=== PATIENT | female | born 1935 | race Caucasian/White ===

== ENCOUNTER 2020-06-22 14:02 | Observation (INO) | payer MEDICARE ==
--- NOTE | 2020-06-22 14:04 | ERPHSYRPT ---
- History of Present Illness Time Seen by Provider: 06/22/20 14:04 Source: patient, EMS Exam Limitations: no limitations Physician History: This is an 84-year-old white female who is on anticoagulation therapy and for some unknown reason she fell forward hitting her face. She states that she did not lose consciousness. She also has pain in the left hand as well. Patient arrives via EMS without a c-collar in place. She is alert and oriented. She denies chest pain. She denies shortness of breath. She denies abdominal pain. Patient's doctor is Dr. Shetty out of [facility]. They are CAT scan there is not functioning at the time and therefore was transferred to us for evaluation and management. Occurred: just prior to arrival Reason for Fall: unknown Injuries/Pain Location: face, upper extremity (Left hand), mouth Loss of Consciousness: unsure Quality: aching Severity of Pain-Max: moderate Severity of Pain-Current: mild Modifying Factors: Improves With: movement Associated Symptoms (Fall): extremity injury (Hand), No abdominal pain, No confusion, No chest pain, No headache, No nausea, No neck pain, No shortness of breath, No slurred speech Allergies/Adverse Reactions: No Known Drug Allergies Allergy (Unverified 06/22/20 14:07) Home Medications: Aspirin 06/22/20 [History] Beta-Carotene(A) W-C & E/Min [Ocuvite Tablet] 06/22/20 [History] Carvedilol 06/22/20 [History] Levothyroxine Sodium [Levothyroxine] 06/22/20 [History] Rivaroxaban [Xarelto] 06/22/20 [History] Simvastatin 06/22/20 [History] Torsemide 20 mg [Demadex 20 mg] 06/22/20 [History] Tramadol HCl/Acetaminophen [Tramadol-Acetaminophn 37.5-325] 06/22/20 [History] Travel Risk - International Travel Have you traveled outside of the country in past 3 weeks: No - Coronavirus Screening Are you exhibiting any of the following symptoms?: No Close contact with a COVID-19 positive Pt in past 14-21 Days: No - Review of Systems Constitutional: No Symptoms Eyes: No Symptoms Ears, Nose, & Throat: No Symptoms Respiratory: No Symptoms Cardiac: No Symptoms Abdominal/Gastrointestinal: No Symptoms Genitourinary Symptoms: No Symptoms Musculoskeletal: Fall, Injury (Left hand) Skin: Other (Left hand skin lacerations x2. Laceration nasal bridge) Neurological: No Symptoms Psychological: No Symptoms Endocrine: No Symptoms Hematologic/Lymphatic: Easy Bruising (Patient on anticoagulation therapy) Immunological/Allergic: No Symptoms All Other Systems: Reviewed and Negative - Past Medical History Pertinent Past Medical History: Yes - Past Surgical History Past Surgical History: Yes - Nursing Vital Signs Nursing Vital Signs: Initial Vital Signs Temperature 98.0 F 06/22/20 14:13 Pulse Rate 89 06/22/20 14:13 Respiratory Rate 18 06/22/20 14:13 Blood Pressure 102/64 06/22/20 14:13 O2 Sat by Pulse Oximetry 98 06/22/20 14:13 Pain Scale Pain Intensity 6 - Stevie Coma Score Best Eye Response (Stevie): (4) open spontaneously Best Verbal Response (Stevie): (5) oriented Best Motor Response (Stevie): (6) obeys commands Stevie Total: 15 - Physical Exam General Appearance: mild distress, alert, anxiety Head Injury: contusions, lacerations (1.5 cm nasal bridge), swelling, tenderness Eye Exam: PERRL/EOMI, eyes nml inspection ENT Exam: airway nml, other (Upper lip inner aspect with superficial bruising swelling and abrasion), No evidence of ENT injury, No dental injury Neck Exam: supple, trachea midline, full range of motion, normal alignment, normal inspection Respiratory/Chest Exam: No chest tenderness, No normal breath sounds, No respiratory distress, No ecchymosis, No crepitus Gastrointestinal Exam: soft, normal bowel sounds, No tenderness Rectal Exam: not done Back Exam: normal inspection, normal range of motion, No CVA tenderness, No vertebral tenderness Extremity Exam: normal range of motion, pelvis stable, lacerations (Left hand. No active bleeding. No foreign body. Neurovascular intact), evidence of injury (Left hand), tenderness (Laceration x2 left second digit) Skin Exam: laceration (As above) SpO2 Interpretation: normal O2 Delivery: Room Air Procedures - Laceration/Wound Repair Other Time of Procedure: 17:30 Wound Location: face (Nasal bridge), hand (Left) Wound Length (cm): 10 (This patient had 3 lacerations that needed approximation the first was a 1.5 cm "upside down Y" laceration of the nasal bridge. The next was a 2.5 cm laceration/skin tear of the thenar eminence of the left hand. The next laceration was a 6 cm laceration/skin tear of the second digit.) Wound's Depth, Shape: superficial, linear Wound Explored: clean (Laceration sites were examined in a bloodless field to the base and no foreign bodies were noted.) Irrigated: Yes Hibiclens Prep: Yes Anesthesia: 1% Lidocaine Suture Size/Type: 4-0, 3-0, prolene Number of Sutures: 12 (12 total sutures of a combination of 3-0 Prolene and 4-0 Prolene in a simple interrupted fashion to approximate all 3 sites.) Layer Closure?: No Progress: 06/22/20 17:49 The area of the nasal bridge in the skin of the laceration site to the left hand were prepped with Hibiclens and saline solution a total of 17 mL of 1% lidocaine plain were used to anesthetize all 3 sites. Sterilely, 4 simple interrupted sutures of 4-0 Prolene were used to approximate the laceration side of the nasal bridge. This area the wound was cleaned and dried and bacitracin ointment was applied to it. Next the left hand site was prepped with a Hibiclens/saline solution. After local anesthesia was instilled, 2 simple interrupted sutures of 4-0 Prolene were used to approximate the laceration/skin tear of the left thenar eminence. Finally, 6 simple interrupted sutures of 3-0 Prolene were used to loosely approximate the laceration/skin tear of the left second digit. Each of the sites were cleaned and dried and bacitracin ointment was placed overlying this. The hand laceration sites were covered with a nonstick gauze and then a bandage. The patient told the procedure well and there were no complications. I purposely did not tightly approximate the skin edges. There was a lot of swelling present and they were skin tears present within the laceration site. - Course Nursing assessment & vital signs reviewed: Yes EKG Interpreted by Me: RATE (89), Sinus Rhythm, NORMAL AXIS, NORMAL INTERVALS, NORMAL QRS, NORMAL ST-T, Other (There are no acute ischemic changes present on today's EKG. There are multiple ventricular premature complexes present. There is no comparison EKG) Ordered Tests: Active Orders 24 hr Category Date Time Status Floor Layer Apprentice STAT Care 06/22/20 14:05 Active EKG-ER Only STAT Care 06/22/20 14:05 Active IV Insertion STAT Care 06/22/20 14:05 Active NPO (ED) STAT Care 06/22/20 14:05 Active POCT Glucose Check STAT Care 06/22/20 14:05 Active Pulse Oximetry (ED) STAT Care 06/22/20 14:05 Active Wound Care STAT Care 06/22/20 16:34 Active CERVICAL SPINE WO CONTRAST [CT] Stat Exams 06/22/20 14:06 Completed FACIAL BONES WO CONTRAST [CT] Stat Exams 06/22/20 14:06 Completed HAND (MINIMUM 3 VIEWS) Stat Exams 06/22/20 14:48 Completed HEAD WITHOUT CONTRAST [CT] Stat Exams 06/22/20 14:05 Completed CBC W DIFF Stat Lab 06/22/20 14:07 Completed CMP Stat Lab 06/22/20 14:07 Completed CULTURE,URINE Stat Lab 06/22/20 14:06 Received PROTIME WITH INR Stat Lab 06/22/20 14:07 Completed UA W/RFX UR CULTURE Stat Lab 06/22/20 14:52 Ordered Medication Summary Discontinued Medications Generic Name Dose Route Start Last Admin Trade Name Samyq PRN Reason Stop Dose Admin Bacitracin Zinc 1.8 gm 06/22/20 17:39 06/22/20 17:41 Baciguent Packet TP 06/22/20 17:40 1.8 gm STAT ONE Administration Bacitracin Zinc Confirm 06/22/20 17:41 Baciguent Packet Administered 06/22/20 17:42 Dose 2 gm .ROUTE .STK-MED ONE Ceftriaxone Sodium/Dextrose 1 g in 50 mls @ 100 mls/hr 06/22/20 16:33 06/22/20 17:42 Rocephin 1 Gm-D5w 50 Ml Bag IV 06/22/20 17:02 Infused STAT STA Infusion Ceftriaxone Sodium/Dextrose Confirm 06/22/20 16:42 Rocephin 1 Gm-D5w 50 Ml Bag Administered 06/22/20 16:43 Dose 1 g in 50 mls @ ud IV .STK-MED ONE Lidocaine HCl 20 ml 06/22/20 16:39 06/22/20 16:45 Xylocaine 1% Hcl 20 Ml Mdv IJ 06/22/20 16:40 20 ml STAT ONE Administration Lidocaine HCl Confirm 06/22/20 16:42 Xylocaine 1% Hcl 20 Ml Mdv Administered 06/22/20 16:43 Dose 20 ml .ROUTE .STK-MED ONE Lab/Rad Data: Laboratory Result Diagrams 06/22/20 14:07 06/22/20 14:07 Laboratory Results 06/22/20 06/22/20 06/22/20 Range/Units 14:07 14:07 14:07 WBC 8.1 (4.0-10.5) K/mm3 RBC 4.12 (4.1-5.4) M/mm3 Hgb 10.0 L (12.0-16.0) gm/dl Hct 33.5 L (35-47) % MCV 81.3 (78-100) fl MCH 24.3 L (26-32) pg MCHC 29.9 L (32-36) g/dl RDW 18.9 H (11.5-14.0) % Plt Count 196 (150-450) K/mm3 MPV 10.7 (7.5-11.0) fl Gran % 78.0 H (36.0-66.0) % Eos # (Auto) 0.09 (0-0.5) Absolute Lymphs (auto) 1.00 (1.0-4.6) Absolute Monos (auto) 0.68 (0.0-1.3) Lymphocytes % 12.3 L (24.0-44.0) % Monocytes % 8.4 (0.0-12.0) % Eosinophils % 1.1 (0.00-5.0) % Basophils % 0.2 (0.0-0.4) % Absolute Granulocytes 6.32 (1.4-6.9) Basophils # 0.02 (0-0.4) PT 25.2 H (9.95-12.35) SECONDS INR 2.21 (0.8-3.0) Sodium 137 (137-145) mmol/L Potassium 3.6 (3.5-5.1) mmol/L Chloride 93 L (98-107) mmol/L Carbon Dioxide 33 H (22-30) mmol/L Anion Gap 14.0 (5-15) MEQ/L BUN 34 H (7-17) mg/dL Creatinine 1.29 H (0.52-1.04) mg/dL Estimated GFR 42.1 ML/MIN Glucose 102 (74-106) mg/dL Calcium 9.3 (8.4-10.2) mg/dL Total Bilirubin 0.60 (0.2-1.3) mg/dL AST 28 (14-36) U/L ALT 8 (0-35) U/L Alkaline Phosphatase 52 (38-126) U/L Serum Total Protein 7.1 (6.3-8.2) g/dL Albumin 3.9 (3.5-5.0) g/dL Urine Color (YELLOW) Urine Appearance (CLEAR) Urine pH (5-6) Ur Specific [place] (1.005-1.025) Urine Protein (Negative) Urine Ketones (NEGATIVE) Urine Blood (0-5) Homero/ul Urine Nitrite (NEGATIVE) Urine Bilirubin (NEGATIVE) Urine Urobilinogen (0-1) mg/dL Ur Leukocyte Esterase (NEGATIVE) Urine WBC (Auto) (0-5) /HPF Urine RBC (Auto) (0-2) /HPF U Epithel Cells (Auto) (FEW) /HPF Urine Bacteria (Auto) (NEGATIVE) /HPF Urine Culture Reflexed (NO) Urine Glucose (NEGATIVE) mg/dL 06/22/20 Range/Units 14:06 WBC (4.0-10.5) K/mm3 RBC (4.1-5.4) M/mm3 Hgb (12.0-16.0) gm/dl Hct (35-47) % MCV (78-100) fl MCH (26-32) pg MCHC (32-36) g/dl RDW (11.5-14.0) % Plt Count (150-450) K/mm3 MPV (7.5-11.0) fl Gran % (36.0-66.0) % Eos # (Auto) (0-0.5) Absolute Lymphs (auto) (1.0-4.6) Absolute Monos (auto) (0.0-1.3) Lymphocytes % (24.0-44.0) % Monocytes % (0.0-12.0) % Eosinophils % (0.00-5.0) % Basophils % (0.0-0.4) % Absolute Granulocytes (1.4-6.9) Basophils # (0-0.4) PT (9.95-12.35) SECONDS INR (0.8-3.0) Sodium (137-145) mmol/L Potassium (3.5-5.1) mmol/L Chloride (98-107) mmol/L Carbon Dioxide (22-30) mmol/L Anion Gap (5-15) MEQ/L BUN (7-17) mg/dL Creatinine (0.52-1.04) mg/dL Estimated GFR ML/MIN Glucose (74-106) mg/dL Calcium (8.4-10.2) mg/dL Total Bilirubin (0.2-1.3) mg/dL AST (14-36) U/L ALT (0-35) U/L Alkaline Phosphatase (38-126) U/L Serum Total Protein (6.3-8.2) g/dL Albumin (3.5-5.0) g/dL Urine Color KENISHA (YELLOW) Urine Appearance CLOUDY (CLEAR) Urine pH 5.0 (5-6) Ur Specific [place] 1.013 (1.005-1.025) Urine Protein 100 (Negative) Urine Ketones TRACE (NEGATIVE) Urine Blood NEGATIVE (0-5) Homero/ul Urine Nitrite NEGATIVE (NEGATIVE) Urine Bilirubin NEGATIVE (NEGATIVE) Urine Urobilinogen 4 (0-1) mg/dL Ur Leukocyte Esterase TRACE (NEGATIVE) Urine WBC (Auto) 51-100 (0-5) /HPF Urine RBC (Auto) 16-25 (0-2) /HPF U Epithel Cells (Auto) RARE (FEW) /HPF Urine Bacteria (Auto) MANY (NEGATIVE) /HPF Urine Culture Reflexed YES (NO) Urine Glucose NEGATIVE (NEGATIVE) mg/dL - Progress Progress: improved, pain not gone completely, re-examined Progress Note: 06/22/20 16:23 Left hand x-ray shows no acute fracture or dislocation. CAT scan of the head without contrast shows frontal scalp soft tissue swelling/hematoma without underlying fracture. There is no intracranial abnormality. CAT scan of the cervical spine without contrast is negative for any acute frac ture or subluxation. There is multilevel degenerative changes noted CAT scan of the facial bones without contrast shows nasal bone and nasal septal fractures. There is right maxillary sinus disease. No other acute findings noted 06/22/20 16:57 Medical decision making: This patient has nasal bridge laceration, left hand laceration x2 as ecchymosis and swelling of the face. She also has a urinary t ract infection. She lives alone and has help occasionally with her daughter and home health. She will not have help available tonight or tomorrow. She is 84 years old somewhat frail. I think the best plan for her is to place her in observation. I spoke with . I reviewed the patient history, complaint, radiographic findings and laboratory results. He agrees to place her in observation. Discussed with : Roxane Will see patient in: hospital (observation) Counseled pt/family regarding: lab results, diagnosis, rad results - Departure Departure Disposition: Observation Clinical Impression: Fall with injury, Nasal fracture, Simple laceration of nose, Laceration of left hand, Urinary tract infection Condition: Stable Critical Care Time: No Referrals: ISAEL HUSSEIN MD [Primary Care Provider] -
[2020-06-22 14:21] LABS: Absolute Neutrophil Ct (ANC) 6.32 (1.4-6.9); BASOPHIL % 0.2 % (0.0-0.4); Basophil (Absolute #) 0.02 (0-0.4); Eosinophil % 1.1 % (0.00-5.0); Eosinophil (Absolute #) 0.09 (0-0.5); Hematocrit 33.5 % (35-47); Lymphocytes % 12.3 % (24.0-44.0); Mean Cell Volume 81.3 fl (78-100); Mean Corpuscular Hemoglobin 24.3 pg (26-32); Mean Corpuscular Hgb Concent. 29.9 g/dl (32-36); Mean Platelet Volume 10.7 fl (7.5-11.0); Monocyte (Absolute #) 0.68 (0.0-1.3); Monocytes % 8.4 % (0.0-12.0); Platelet Count 196 K/mm3 (150-450); Red Blood Count 4.12 M/mm3 (4.1-5.4); Red Cell Distribution Width 18.9 % (11.5-14.0); White Blood Count 8.1 K/mm3 (4.0-10.5)
[2020-06-22 14:30] LABS: INR 2.21 (0.8-3.0); PROTIME 25.2 SECONDS (9.95-12.35)
[2020-06-22 14:37] LABS: ALBUMIN 3.9 g/dL (3.5-5.0); BILIRUBIN,TOTAL 0.6 mg/dL (0.2-1.3); Calcium 9.3 mg/dL (8.4-10.2); Creatinine 1 1.29 mg/dL (0.52-1.04); EST GLOMERULAR FILTRATION RATE 42.1 ML/MIN; Potassium 3.6 mmol/L (3.5-5.1); Total Protein 7.1 g/dL (6.3-8.2)
[2020-06-22 14:39] LABS: Appearance CLOUDY (CLEAR); Bacteria MANY /HPF (NEGATIVE); Bilirubin NEGATIVE (NEGATIVE); Blood NEGATIVE Ery/ul (0-5); Epithelial Cells RARE /HPF (FEW); Glucose NEGATIVE (NEGATIVE); Ketones TRACE (NEGATIVE); Leukocyte Esterase TRACE (NEGATIVE); Nitrite NEGATIVE (NEGATIVE); Protein,Urine Dip 100 (Negative); Specific Gravity 1.013 (1.005-1.025); Urobilinogen 4 mg/dL (0-1); WBC 51-100 /HPF (0-5)
--- NOTE | 2020-06-22 15:15 | XRAY ---
Indication: Contusion following fall. Multiple contiguous axial images obtained through the head without contrast. Comparison: None Age-appropriate global atrophy and moderate periventricular degenerative micro-ischemia bilaterally. No acute intracranial hemorrhage, abnormal extra-axial fluid collection, or mass effect. Fourth ventricle is midline without hydrocephalus. Mild frontal scalp soft tissue swelling/hematoma. Bony calvarium intact. Mastoid air cells are clear. CT facial bones and CT cervical spine reported separately. Impression: Frontal scalp soft tissue swelling/hematoma without underlying fracture. Otherwise nonacute senile brain.
--- NOTE | 2020-06-22 15:21 | XRAY ---
Indication: Contusion following fall. Multiple contiguous axial images obtained through the cervical spine. Sagittal and coronal reformatted images obtained. Comparison: None CT head and CT facial bones reported separately. Axial images negative for acute fracture, suspicious bony lesions, or spinal canal stenosis. Mild C3-C7 degenerative endplate spurring and mild/moderate multilevel bilateral degenerative facet hypertrophy. Also mild atlantoaxial degenerative arthropathy. Sagittal and coronal reformatted images demonstrates normal alignment with C2-C7 disc space narrowing. No acute compression fracture, subluxation, or jumped facet. Normal appearing craniocervical junction. Visualized noncontrasted soft tissues demonstrates moderate scattered vascular calcifications bilaterally. Lung apices clear. Impression: 1. Negative acute fracture/subluxation. 2. Multilevel degenerative changes and scattered vascular calcifications.
--- NOTE | 2020-06-22 15:23 | XRAY ---
Indication: Pain following fall. Comparison: None 3 view left hand demonstrates mild osteopenia, mild 1st metacarpal multangular degenerative changes, scattered vascular calcifications, and 3 mm benign soft tissue calcification adjacent to distal ulna. No other bony, articular, or soft tissue abnormalities.
--- NOTE | 2020-06-22 15:44 | XRAY ---
Indication: Contusion following fall. Multiple contiguous axial images obtained through the facial bones. Sagittal and coronal reformatted images obtained. Comparison: None Patient is edentulous. Minimally depressed fracture involving the bridge of the nasal bone with overlying soft tissue swelling. Also angulated fracture involving the mid nasal septum with opacification of both nasal passages presumably blood. No other acute fracture, suspicious bony lesions, or radiopaque foreign body. Orbits including roof, saavedra, and floor is intact. Right maxillary sinus demonstrates minimal mucosal thickening. Remaining paranasal sinuses are clear. Visualized noncontrasted soft tissues unremarkable. CT head and CT cervical spine reported separately. Impression: 1. Nasal bone and nasal septal fractures. 2. Right maxillary sinus disease.
[2020-06-22] MEDS ORDERED: ROCEPHIN 1 Gm-D5w 50 ml Bag** 1 G/50 ML IVPB IV STA (16:33)
[2020-06-22] MEDS ORDERED: XYLOCAINE 1% HCL 20 ML MDV IJ ONE (16:39)
[2020-06-22] MEDS ORDERED: XYLOCAINE 1% HCL 20 ML MDV ONE (16:42)
[2020-06-22] MEDS ORDERED: ROCEPHIN 1 Gm-D5w 50 ml Bag** 1 G/50 ML IVPB IV ONE (16:42)
[2020-06-22] MEDS ORDERED: BACIGUENT PACKET TP ONE (17:39)
[2020-06-22] MEDS ORDERED: BACIGUENT PACKET ONE (17:41)
[2020-06-22] MEDS ORDERED: Zofran 4 MG/2 ML VIAL IV ONE (17:56)
[2020-06-22] MEDS ORDERED: MORPHINE SULFATE 2 MG INJ IV ONE ×2 (17:56→19:17)
[2020-06-22] MEDS ORDERED: MORPHINE SULFATE 2 MG INJ ONE ×2 (17:56→19:17)
[2020-06-22] MEDS ORDERED: Zofran 4 MG/2 ML VIAL ONE (17:56)
[2020-06-22 18:19] LABS: INFLUENZA A NEGATIVE (NEGATIVE); INFLUENZA B NEGATIVE (NEGATIVE); RESPIRATORY SYNCTIAL VIRUS NEGATIVE (Negative)
[2020-06-22] MEDS ORDERED: Sodium Chloride 0.9% 1000 ML 1,000 ML IV SCH (20:22)
[2020-06-22] MEDS ORDERED: Zofran 4 MG/2 ML VIAL IV PRN (20:22)
[2020-06-22] MEDS: TYLENOL 325 MG PO PRN (20:38)
[2020-06-23] MEDS: MORPHINE SULFATE 2 MG INJ IV PRN ×3 (02:34→15:53)
[2020-06-23] MEDS: TYLENOL 325 MG PO PRN ×2 (05:38→13:04)
[2020-06-23 07:38] VITALS: O2SAT 93
[2020-06-23] MEDS ORDERED: ROCEPHIN 1 Gm-D5w 50 ml Bag** 1 G/50 ML IVPB IV SCH (10:00)
[2020-06-23] MEDS ORDERED: TRAMADOL HCL PO PRN (10:56)
[2020-06-23] MEDS ORDERED: ACETAMINOPHEN PO PRN (10:56)
[2020-06-23] MEDS ORDERED: ULTRAM 50 MG PO PRN (11:26)
[2020-06-23] MEDS ORDERED: TYLENOL 325 MG PO PRN (11:28)
[2020-06-23] MEDS ORDERED: COREG 12.5 MG PO SCH (11:30)
[2020-06-23] MEDS ORDERED: SYNTHROID 25 MCG PO SCH (11:30)
[2020-06-23] MEDS ORDERED: ECOTRIN 81 MG PO SCH (11:30)
[2020-06-23] MEDS ORDERED: SYNTHROID 112 MCG PO SCH (11:30)
[2020-06-23] MEDS ORDERED: XARELTO 10 MG TABLET PO SCH (18:00)
[2020-06-23 18:20] VITALS: BP 107/56; PULSE 92
--- NOTE | 2020-06-23 20:09 | XRAY ---
Indication: Follow-up fall one day earlier. Multiple contiguous axial images obtained through the head without contrast. Comparison: One day earlier Stable age-appropriate global atrophy and moderate periventricular degenerative micro-ischemia. Again no acute intracranial hemorrhage, abnormal extra-axial fluid collection, or mass effect. Fourth ventricle is midline without hydrocephalus. Bony calvarium intact with stable nasal bone/nasal septum fractures. Stable frontal scalp soft tissue swelling/hematoma. Impression: Stable CT head without contrast exam again demonstrating atrophy, degenerative micro-ischemia, and nasal bone/nasal septum fractures. Comment: Preliminary interpretation was made by [facility]. No critical discrepancy.
[2020-06-23] MEDS ORDERED: NON-FORMULARY ITEM (Simvastatin [Simvastatin] 40 MG) PO SCH (22:00)
[2020-06-23] MEDS ORDERED: Ocuvite Tablet PO SCH (22:00)
[2020-06-23] MEDS ORDERED: ZOCOR 20MG PO SCH (22:00)
[2020-06-23] MEDS ORDERED: NON-FORMULARY ITEM (Carvedilol [Carvedilol] 25 MG) PO SCH (22:00)
[2020-06-23] MEDS ORDERED: BABY ASPIRIN 81 MG CHEW PO SCH (22:00)
[2020-06-24] MEDS ORDERED: LEVOTHYROXINE SODIUM 137 MCG PO SCH (10:00)
[2020-06-24] MEDS ORDERED: NON-FORMULARY ITEM (Rivaroxaban [Xarelto] 20 MG) PO SCH (10:00)
[2020-06-24] MEDS ORDERED: DEMADEX 20 MG PO SCH (11:30)
--- NOTE | 2020-07-06 21:06 | PCM.SSS ---
History of Present Illness - Chief Complaint Chief Complaint: Fall injury Date: 06/23/20 History of Present Illness: is a 85 year old female. Pt. fell forward fracturing her nose, being on anticoagulation therapy, pt. was observed for repeat scanning the following day to be certain of no intracranial bleed. - Review of Systems Constitutional: No Fever, No Chills Eyes: No Symptoms Ears, Nose, & Throat: No Symptoms Respiratory: No Cough, No Short Of Breath Cardiac: No Chest Pain, No Edema, No Syncope Abdominal/Gastrointestinal: No Abdominal Pain, No Nausea, No Vomiting, No Diarrhea Genitourinary Symptoms: No Dysuria Musculoskeletal: No Back Pain, No Neck Pain Skin: No Rash Neurological: No Dizziness, No Focal Weakness, No Sensory Changes Psychological: No Symptoms Endocrine: No Symptoms Hematologic/Lymphatic: No Symptoms Immunological/Allergic: No Symptoms Medications & Allergies Home Medications: Home Medication List Aspirin 81 mg PO BID 06/22/20 [History Confirmed 06/22/20] Beta-Carotene(A) W-C & E/Min [Ocuvite Tablet] 1 tab PO BID 06/22/20 [History Confirmed 06/22/20] Carvedilol 25 mg PO BID 06/22/20 [History Confirmed 06/22/20] Levothyroxine Sodium [Levothyroxine] 137 mcg PO DAILY 06/22/20 [History Confirmed 06/22/20] Rivaroxaban [Xarelto] 20 mg PO DAILY 06/22/20 [History Confirmed 06/22/20] Simvastatin 40 mg PO HS 06/22/20 [History Confirmed 06/22/20] Torsemide 20 mg [Demadex 20 mg] 20 mg PO DAILY 06/22/20 [History Confirmed 06/22/20] Tramadol HCl/Acetaminophen [Tramadol-Acetaminophn 37.5-325] 50 mg PO QID PRN 09/05 [History Confirmed 06/22/20] Allergies/Adverse Reactions: Allergies Allergy/AdvReac Type Severity Reaction Status Date / Time No Known Drug Allergies Allergy Unverified 06/22/20 14:07 - Past Medical History Past Medical History: Yes ENT History: Cataracts Cardiac History: Other Respiratory History: No Pertinent History Endocrine Medical History: Hypoglycemia Musculoskelatal History: Arthritis GI Medical History: No Pertinent History History: No Pertinent History Pyscho-Social History: No Pertinent History Reproductive Disorders: No Pertinent History Comment: pt poor historian - Female History Are you now?: No - Past Surgical History Past Surgical History: Yes Cardiac History: CABG Musculskeletal Surgical Hx: No Pertinent History Female Surgical History: No Pertinent History - Social History Smoking Status: Former smoker Exposure to second hand smoke: No Alcohol: None Drug Use: none - Physical Exam General Appearance: no apparent distress, alert Neurologic Exam: alert, oriented x 3, cooperative, normal mood/affect, nml cerebellar function, nml station & gait, sensation nml, No motor deficits Eye Exam: PERRL/EOMI, eyes nml inspection Ears, Nose, Throat Exam: TMs normal, pharynx normal, moist mucous membranes, other (Pt. with extensive bruising and nasal swelling) Neck Exam: normal inspection, non-tender, supple, full range of motion Respiratory Exam: normal breath sounds, lungs clear, No respiratory distress Cardiovascular Exam: regular rate/rhythm, normal heart sounds, normal peripheral pulses Gastrointestinal/Abdomen Exam: soft, normal bowel sounds, No tenderness, No mass Back Exam: normal inspection, normal range of motion, No CVA tenderness, No vertebral tenderness Extremity Exam: normal inspection, normal range of motion, pelvis stable Skin Exam: normal color, warm, dry, No rash Wound Assessment: Skin/Wound Assessment Wound/Incision Assessment Start: 06/22/20 21:50 Text: Status: Active Freq: Q6H Protocol: Document 06/23/20 14:00 AR (Rec: 06/23/20 16:18 AR [id number]) Wound/Incision Assessment Medial Face Wound Assessment Shift Assessment Wound Type Laceration Wound Stage Non Pressure Wound Dressing Status Dry & Intact Drainage Amount None General Appearance Clean/Dry Surrounding Tissue Purple,Edematous Primary Dressing Bandaid Comment bruising to face. Around eyes, nose and upper lip. bandaid over bridge of nose/CDI Other Wound Assessment Admission Wound Type Laceration Wound Stage Non Pressure Wound Dressing Status Dry & Intact Drainage Amount None General Appearance Clean/Dry Primary Dressing Elastic Bandage Comment first digit left hand (pointer finger)drsg CDI Lymphatic Exam: No adenopathy Results - Labs Lab/Micro Results: Microbiology 06/22/20 14:06 Urine Culture - Final Urine, Catheterized Escherichia Coli Assessment/Plan (1) Fall with injury Status: Acute Code(s): W19.XXXA - UNSPECIFIED FALL, INITIAL ENCOUNTER (2) Nasal fracture Status: Acute Code(s): S02.2XXA - FRACTURE OF NASAL BONES, INIT ENCNTR FOR CLOSED FRACTURE Hospital Summary - Hospital Course Hospital Course: Pt. admitted for observation, further evaluation did not yield any treatable etiology of fall, repeat CT did not show any intracranial bleed, pt. was stable to discharge to home with continued home help - Vitals & Intake/Output Vital Signs: Vital Signs Temperature 99.0 F 06/23/20 12:00 Pulse Rate 92 H 06/23/20 16:00 Respiratory Rate 16 06/23/20 16:00 Blood Pressure 107/56 06/23/20 16:00 O2 Sat by Pulse Oximetry 93 L 06/23/20 12:00 - Lab Result Diagrams: 06/22/20 14:07 06/22/20 14:07 Micro Results-Entire Visit: Microbiology 06/22/20 14:06 Urine Culture - Final Urine, Catheterized Escherichia Coli - Procedures and Test Procedures and Tests throughout Hospitalization: Therapy Orders & Screens 06/22/20 21:50 PT Screen per Nursing Assess ONCE Comment: Protocol Order Physician Instructions: Greater than 3 points order PT Admission Screenin Reason For Exam: Triggered on Admission Diagnosis: Fall injury Open Wound/Cellutlitis/Pressure Ulcers: No Acute Fx/ORIF/Change in wt bearing status: No Severe MUSCULOSKELETAL pain: No ADL Dysfunction: Yes Acute CVA w/Hemiparesis/Hemiplegia: No Decreased Functional Mobility/Strength: Yes Sprain/Strain: No Acute Post-op Mobility Dysfunction: No Total Points: 4 - Discharge Disposition: Home, Self-Care Condition: Stable Prescriptions: Continue Tramadol HCl/Acetaminophen [Tramadol-Acetaminophn 37.5-325] 50 mg PO QID PRN PRN Reason: Pain Torsemide 20 mg [Demadex 20 mg] 20 mg PO DAILY Simvastatin 40 mg PO HS Rivaroxaban [Xarelto] 20 mg PO DAILY Levothyroxine Sodium [Levothyroxine] 137 mcg PO DAILY Carvedilol 25 mg PO BID Beta-Carotene(A) W-C & E/Min [Ocuvite Tablet] 1 tab PO BID Aspirin 81 mg PO BID Instructions: Nose Fracture (DC) Additional Instructions: FOLLOW UP WITH YOUR PRIMARY CARE PHYSICIAN
== END 2020-06-23 18:11 | disposition home or self-care (01) ==
LOC: ED 14:02 → MED SURG 20:02
PROVIDERS: ADMIT Family Medicine; ATTEND Family Medicine
DX: S02.2XXA Fracture of nasal bones, initial encounter for closed fracture (principal); S61.412A Laceration without foreign body of left hand, initial encounter; S61.211A Laceration without foreign body of left index finger without damage to nail, initial encounter; S00.93XA Contusion of unspecified part of head, initial encounter; W18.30XA Fall on same level, unspecified, initial encounter; Z20.828 Contact with and (suspected) exposure to other viral communicable diseases; Z79.899 Other long term (current) drug therapy; Z79.01 Long term (current) use of anticoagulants
CPT/HCPCS: 0241U; 12001; 12002; 12011; 36000; 36415; 70450; 70486; 72125; 73130; 80053; 81001; 85025; 85610; 87077; 87086; 87186; 93005; 93041; 94760; 96365; 96372; 96374; 96375; 96376; 99285; G0378; J0696; J2270; J2405; A9270-GY